=== PATIENT | female | born 1975 | race Caucasian/White ===

== ENCOUNTER 2018-09-09 08:00 | Day surgery (SDC) | payer OTHER ==
[~2018-09-09 08:00] MED LIST: PROPOFOL INJ 200 MG/20 ML VIAL IV ONE
[2018-09-09 12:01] VITALS: BP 117/79
--- NOTE | 2018-09-09 12:43 | Operative Report ---
Operative Report DATE OF SURGERY: 09/09/18 Operative Report: The risks, benefits and alternatives of the procedure including the risk of bleeding, perforation requiring surgery have been explained to the patient in detail and informed consent has been obtained. The patient is taken back to the endoscopy suite and placed in the left, lateral decubital position. Timeout was called. Propofol medication is administered. A rectal examination is done which did not reveal any masses, tears or fissures. An Olympus videoscope was introduced into the patient's rectum. The scope was then carefully advanced all the way to the cecum. The cecum was identified by the usual anatomical landmarks including the ileocecal valve as well as the appendiceal office. Photodocumentation is obtained. The scope was then sequentially pulled back via the various segments of the colon including the ascending colon, hepatic flexu re, transverse colon, splenic flexure, descending colon and finally into the rectosigmoid portions of the colon. Retroflexion maneuvers performed. The risks benefits and alternatives of the procedure explained to the patient in detail and informed consent is obtained.A GIF Olympus video scope was inserted into the patient's mouth and hypopharynx ,the esophagus is identified intubated and insufflated, the scope was then advanced through the esophagus stomach and duodenum ,retroflexion maneuver is done, the esophagus stomach and first and second portions of the duodenum examined. PREOPERATIVE DIAGNOSIS: Iron deficiency anemia, change of bowel habits POSTOPERATIVE DIAGNOSIS: Normal screening colonoscopy. Billroth II anastomosis. Mild duodenitis status post biopsy rule out celiac disease OPERATION: Diagnostic colonoscopy. EGD with biopsy SURGEON: CASIE BULLARD ANESTHESIA: LMAC TISSUE REMOVED OR ALTERED: As noted above. COMPLICATIONS: None. ESTIMATED BLOOD LOSS: None. INTRAOPERATIVE FINDINGS: As noted above. PROCEDURE: Patient tolerated the procedure well. No immediate postprocedure comp occasions are noted. Patient is discharged in good condition. Discharge date 09/09/2018. Discharge diet: Regular. Discharge activity: Regular. 2 to 3-week follow-up to discuss findings. Patient is instructed to call the office or proceed to the emergency room should there be any further problems or questions. Wait on the pathology.
== END 2018-09-09 10:04 | disposition home or self-care (01) ==
LOC: END 08:00
PROVIDERS: ATTEND Internal Medicine Gastroenterology
DX: K29.80 Duodenitis without bleeding (principal); Z90.3 Acquired absence of stomach [part of]; R19.4 Change in bowel habit; R19.5 Other fecal abnormalities; D50.0 Iron deficiency anemia secondary to blood loss (chronic); F17.210 Nicotine dependence, cigarettes, uncomplicated; E07.9 Disorder of thyroid, unspecified
CPT/HCPCS: 43239; 45380; 88305 ×2; 00813; J2704; 813